=== PATIENT | male | born 1965 | race Caucasian/White ===

== ENCOUNTER 2018-02-23 20:33 | Observation (INO) | payer OTHER, SELFPAY ==
[~2018-02-23 20:33] MED LIST: ISOVUE-370 76%-LOCM 1 ML ONE
--- NOTE | 2018-02-23 21:42 | CT ---
BRAIN CT WITHOUT IV CONTRAST: HISTORY: A 53-year-old male with a history of injury following a fall approximately 8 feet, through a roof, wi th neck pain. FINDINGS: No focal mass or midline shift. No intraaxial or extraaxial hemorrhage. The sinuses and mastoids ar e clear. IMPRESSION: No acute intracranial process. No mass or bleed. POS: [facility]
--- NOTE | 2018-02-23 22:14 | CT ---
CERVICAL SPINE CT SCAN WITHOUT IV CONTRAST: HISTORY: A 53-year-old male with a history of back pain after a fall of 8 feet, through a roof. FINDINGS: There is a very minimally displaced linear fracture through the C7 spinous process. Prominent disk o steophytosis changes are noted, particularly at C5-C6 and C6-C7, with some associated canal, lateral recess, and foraminal stenosis. IMPRESSION: Minimally displaced linear fracture through the C7 spinous process. Disk osteophytosis with canal, l ateral recess, and foraminal stenosis at C5-C6 and C6-C7. Findings discussed with Dr. Stephens, concerning the spinous process fracture, at 9:40 p.m. CODE CR POS: [facility]
--- NOTE | 2018-02-23 22:16 | CT ---
THORACIC SPINE CT SCAN WITHOUT IV CONTRAST: HISTORY: A 53-year-old male with a history of a fall from 8 feet with back pain, through a roof. FINDINGS: Generalized disk osteophytosis changes are noted. Again noted is a C7 spinous process fracture. The re are mild compression fractures of T5, T6, and T7, without evidence for retropulsion, associated po sterior element involvement, or significant canal or foraminal stenosis. IMPRESSION: Mild compression fractures of T5, T6, and T7, without retropulsion, posterior element involvement, or associated stenosis. Findings were discussed with Dr. Stephens at 9:40 p.m. CODE CR POS: [facility]
[2018-02-23] MEDS ORDERED: HYDROcodone/Acetaminophen 5/325 mg Tablet ONE (22:27)
[2018-02-23 22:40] LABS: #Basophils 0.1 thou/uL (0.0-0.2); #Eosinphils 0.2 thou/uL (0.0-0.7); #Lymphocytes 2.3 thou/uL (1.20-3.40); #Monocytes 0.8 thou/uL (0.11-0.59); #Neutrophils 9.2 thou/uL (1.40-6.50); %Basophils 0.5 % (0.0-1.0); %Eosinophils 1.7 % (0.0-10.0); %Monocytes 6.3 % (0.0-10.0); %Neutrophils 73.6 % (42.0-75.0); Hemoglobin 15.7 g/dL (14.0-18.0); Mean Corpuscular HGB CONC 34.6 g/dL (32.0-36.0); Mean Corpuscular Hemoglobin 30.5 pg (27.0-31.0); Mean Corpuscular Volume 88.4 fl (80.0-94.0); Mean Platelet Volume 6.5 fL (7.4-10.4); Platelet Count 235 thou/uL (130-400); RBC Distribution Width 12.5 % (11.5-14.5); Red Blood Cell (RBC) Count 5.14 mill/uL (4.70-6.10); White Blood Cell (WBC) Count 12.5 thou/uL (4.8-10.8)
[2018-02-23 23:03] LABS: ALT (SGPT) 26 U/L (8-55); AST (SGOT) 21 U/L (5-34); Albumin 4.2 g/dL (3.5-5.0); Alkaline Phosphatase 67 U/L (40-150); Anion Gap 13 mmol/L (10-20); BUN (Urea Nitrogen) 20 mg/dL (8.4-25.7); Bilirubin, Total 0.6 mg/dL (0.2-1.2); Calc. Creatinine Clearance 0 mL/min (70-130); Calcium 9.4 mg/dL (7.8-10.44); Carbon Dioxide 22 mmol/L (22-29); Chloride 106 mmol/L (98-107); Estimated GFR-MDRD 54; Globulin 2.8 g/dL (2.4-3.5); Glucose 104 mg/dL (70-105); Sodium 137 mmol/L (136-145)
--- NOTE | 2018-02-23 23:29 | CT ---
LUMBAR SPINE CT SCAN WITHOUT IV CONTRAST: HISTORY: A 53-year-old male with a history of low back pain following a fall, 8 feet, through a roof. FINDINGS: No evidence for acute fracture or dislocation. L1-L2: Unremarkable. L2-L3: Demonstrates very mild bulging without significant stenosis. L3-L4: Demonstrates some ligament and facet hypertrophic changes and minimal diffuse bulging with mi ld to moderate lateral recess stenosis without significant foraminal stenosis. L4-L5: There is disk bulging with a somewhat more focal left central protrusion, with ligament and f acet hypertrophic changes, with moderate central canal and lateral recess stenosis and moderate bilat eral foraminal stenosis. L5-S1: Unremarkable. IMPRESSION: No acute fracture or dislocation. Some variable severity canal, lateral recess, and foraminal stenos is, most marked at L4-L5. POS: [facility]
--- NOTE | 2018-02-23 23:33 | CT ---
CT ANGIOGRAM NECK INCLUDING 3D RENDERIN02/23/2018 HISTORY: A 53-year-old male with a history of neck swelling after a fall, from 8 feet, through a roof. TECHNIQUE: The exam includes 3D rendering. FINDINGS: The common, internal, and external carotid arteries appear unremarkable, without evidence for associa mansi stenosis. There is some moderate narrowing of the left vertebral artery as it passes through the left C5 foramen secondary to fairly extensive facet arthrosis and marked uncovertebral hypertrophic changes. The remainder of the vertebral arteries and basilar artery appear unremarkable. No evidenc e for a soft tissue mass or evidence for significant hematoma within the neck. The soft tissues of t he neck appear unremarkable. IMPRESSION: Moderate focal extrinsic narrowing of the left vertebral artery as it passes through the C5 foramen s econdary to severe osteophytosis and facet arthrosis. The carotid arteries appear unremarkable. No e vidence for soft tissue mass or neck hematoma. POS: [facility]
[2018-02-24] MEDS ORDERED: Morphine 4 MG/ML VIAL ONE (00:09)
[2018-02-24] MEDS ORDERED: Ketorolac Tromethamine 30 MG/ML VIAL ONE (01:24)
[2018-02-24] MEDS ORDERED: Lorazepam 2 MG/ML VIAL ONE (01:24)
[2018-02-24] MEDS ORDERED: Ondansetron ODT 4 MG TAB PO PRN (02:14)
[2018-02-24] MEDS ORDERED: Ondansetron HCl/PF 4 MG/2 ML Vial IVP PRN (02:14)
[2018-02-24] MEDS ORDERED: Dextrose 5% in Water 1,000 ML IV PRN (02:14)
[2018-02-24] MEDS ORDERED: Dextrose 50% Abboject 50 ML SYRINGE SLOW IVP PRN (02:14)
[2018-02-24] MEDS ORDERED: Rib Fracture Protocol PO SCH (02:15)
[2018-02-24] MEDS ORDERED: Sodium Chloride 0.9% 1,000 ML IV SCH (02:30)
[2018-02-24] MEDS ORDERED: Cyclobenzaprine 10 MG TAB PO PRN (02:30)
[2018-02-24 04:28] VITALS: BMI 31.9
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
[2018-02-24 05:58] LABS: Anion Gap 10 mmol/L (10-20); BUN (Urea Nitrogen) 23 mg/dL (8.4-25.7); Calc. Creatinine Clearance 81 mL/min (70-130); Carbon Dioxide 26 mmol/L (22-29); Chloride 106 mmol/L (98-107); Estimated GFR-MDRD 48; Glucose 150 mg/dL (70-105); Potassium 3.6 mmol/L (3.5-5.1); Sodium 138 mmol/L (136-145)
[2018-02-24] MEDS ORDERED: Ibuprofen 800 MG TAB PO SCH ×2 (06:00→08:00)
[2018-02-24] MEDS: Acetaminophen 500 MG TAB PO SCH ×2 (06:13→11:57)
[2018-02-24] MEDS: traMADol HCl 50 MG TAB PO SCH ×2 (06:13→11:57)
--- NOTE | 2018-02-24 06:57 | CON ---
DATE OF CONSULTATION: 02/24/2018 ATTENDING PHYSICIAN: Dr. Eddie Lopez HISTORY OF PRESENT ILLNESS: The patient is a 53-year-old male who is otherwise healthy, who presented to the emergency department after falling approximately 8 feet from his roof. Following the event the patient was ambulatory at the scene, but began developing some upper back and neck pain and some swelling in his neck and then was therefore brought to the emergency department by EMS for further evaluation. CT was notable for a C7 spinous process fracture as well as T5, 6 and 7 compression fractures. CTA of the cervical spine was negative for any vascular injury. Neurosurgery Service was contacted for evaluation of his acute spinous fractures and a TELEVISION CAMERAMAN brace was recommended. The patient continued to have intractable pain in the emergency department despite several medication and was therefore admitted to the Trauma Service for further pain control. I am seeing the patient at the bedside. He has a GCS of 15. He is in no acute distress, appears comfortable. He has free active range of motion of all extremities. No focal motor weakness is appreciated. He is currently wearing a TELEVISION CAMERAMAN brace provided by [employer]. PAST MEDICAL HISTORY: He reports he is otherwise healthy, denies any medical problems. PAST SURGICAL HISTORY: Hernia repair, plastic surgery to the left forehead. ALLERGIES: The patient has no known drug allergies. SOCIAL HISTORY: He smokes 1 pack per day. He does not drink or use any drugs. FAMILY HISTORY: Noncontributory. REVIEW OF SYSTEMS: Per HPI. PHYSICAL EXAMINATION: VITAL SIGNS: Temperature is 98.1, heart rate is 67, respiration is 16. Patient is 99% on room air, blood pressure is 115/84. CONSTITUTIONAL: GCS 15. Comfortable, no acute distress. HEAD: Normocephalic, atraumatic. EYES: PERRLA. Extraocular movements are intact. NECK: Supple, TELEVISION CAMERAMAN brace in place. PULMONARY: Symmetric chest expansion. Nontender to palpation. No evidence of dyspnea. CARDIOVASCULAR: Regular rate and rhythm. BACK: He is tender over the upper thoracic and mid thoracic region. Pain with any movement. MUSCULOSKELETAL: Free active range of motion of all extremities. No focal motor weakness. No sensation changes. NEUROLOGIC: GCS 15. Alert and oriented x4. No focal neurologic deficits are appreciated. ASSESSMENT AND PLAN: The patient appears to have acute C7 spinous process fracture and T5, 6 and 7 marked compression fractures without retropulsion. He has been fitted with a TELEVISION CAMERAMAN brace which he should wear for all out of bed activities. The brace could be removed briefly when the patient is lying flat in bed or to shower. At this point, I do not anticipate any acute neurosurgical intervention. We will plan to follow up with the patient is approximately 4 weeks with repeat set of x-rays. Please reach out to Neurosurgery Service for any additional questions or concerns. CHRISTIAN
[2018-02-24 07:35] VITALS: TEMP 97.9
[2018-02-24] MEDS ORDERED: Gabapentin 300 MG CAP PO SCH (09:00)
[2018-02-24] MEDS ORDERED: Famotidine 20 MG TAB PO SCH (09:00)
[2018-02-24 11:42] VITALS: BP 122/66
[2018-02-24] MEDS ORDERED: Enoxaparin Sodium 40 MG/0.4 ML SYRINGE SC SCH (21:00)
--- NOTE | 2018-02-25 03:12 | DIS ---
DATE OF ADMISSION: 02/24/2018 DATE OF DISCHARGE: 02/24/2018 ADMITTING PHYSICIAN: Anup Dobbs MD DISCHARGING PHYSICIAN: Santos Sampson DO CONSULTING PHYSICIAN: Eddie Lopez MD, Neurosurgeon. REASON FOR HOSPITALIZATION: An 8 feet fall from carport with T-spine fractures. DISCHARGE DIAGNOSES: 1. Status post fall from carport, 8 feet. 2. C7 spinous process fracture. 3. T5, T6, and T7 compression fracture. 4. Acute traumatic pain. PROCEDURES: None. DISCHARGE CONDITION: Good. DISPOSITION: Home. DISCHARGE MEDICATIONS: 1. Acetaminophen 1000 mg every 6 hours. 2. Flexeril 10 mg oral 3 times daily. 3. Gabapentin 300 mg oral 3 times daily. 4. Ibuprofen 800 mg oral 3 times daily. 5. Tramadol 100 mg oral q.6 hours. ACTIVITY ORDERS: Patient may be out of bed with TLSO brace only. THERAPY: None. DIETARY INSTRUCTIONS: Regular. PLANS FOR FOLLOWUP: Dr. Lopez 4 weeks with repeat x-rays. BRIEF HISTORY OF HOSPITALIZATION: Mr. Vaz is a 53-year-old male who was working on his roof when he fell off and began to have pain on the right side of his neck. He was able to ambulate, but summoned EMS and was transported to [facility]. He was found to have multiple T-spine compression fractures and a C-spine spinous process fracture. He was admitted to the hospital by Trauma Services for pain control and a consult was made to Neurosurgery. Neurosurgery did not recommend surgical intervention and he was placed in TLSO brace. The following morning, pain was well controlled on oral analgesia. He was seen by physical therapy who recommended he be discharged from their services. He was given all discharge instructions, followup information, and strict return precautions. He was discharged home with family. He is to follow up with Dr. Lopez in 4 weeks. Patient was reviewed with Dr. Sampson who agrees with plan for discharge. [facility] HOSPITALGeoffrey
== END 2018-02-24 13:45 | disposition home or self-care (01) ==
LOC: ERS 20:33 → SURG A 02-24 01:30
PROVIDERS: ADMIT Specialist; ATTEND Specialist
DX: W13.2XXA Fall from, out of or through roof, initial encounter; G89.11 Acute pain due to trauma; S22.069A Unspecified fracture of T7-T8 vertebra, initial encounter for closed fracture; S22.059A Unspecified fracture of T5-T6 vertebra, initial encounter for closed fracture; S12.600A Unspecified displaced fracture of seventh cervical vertebra, initial encounter for closed fracture; F17.210 Nicotine dependence, cigarettes, uncomplicated
CPT/HCPCS: 36415; 70450; 70498; 72125; 72128; 72131; 80048; 80053; 85025; 94640; 96361; 96374; 96375; 99406; G0378; G0390; G8978-GP-CJ; G8979-GP-CJ; G8980-GP-CJ; J1885; J2060; J2270; J7620; L0200

== ENCOUNTER 2018-03-26 13:48 | Outpatient (CLI) | payer SELFPAY ==
--- NOTE | 2018-03-26 14:32 | RAD ---
THORACIC SPINE 3 VIEWS: Date: 03/26/18 HISTORY: Pain. Three vertebral body fractures. Patient fell a month ago. COMPARISON: None. CORRELATION: CT thoracic spine dated 02/23/18. FINDINGS: There is loss of vertebral body height at T5, T6, and T7, corresponding to areas of previous injury. There is also suggestion of loss of vertebral body height at T8 and T9. IMPRESSION: Mid thoracic spine fractures. There is mild loss of vertebral body height, greatest at the T7 level. POS: [facility]
--- NOTE | 2018-03-26 14:38 | RAD ---
CERVICAL SPINE 3 VIEWS: Date: 03/26/18 HISTORY: Neck pain. Fracture. FINDINGS: Vertebral body heights are maintained. There is disc space narrowing and minimal degenerative retroli sthesis at the C5-6 level. Osteophytosis throughout the vertebral bodies and facets. C7 spinous proce ss fracture is faintly seen on the lateral view, with significant displacement suspected. IMPRESSION: 1. Suspected worsening of displacement of the C7 spinous process fracture. 2. Degenerative changes cervical spine. POS: [facility]
== END 2018-03-26 13:49 | disposition home or self-care (01) ==
LOC: TBSIIMAG 13:48
PROVIDERS: ATTEND Neurological Surgery
DX: M54.2 Cervicalgia (principal); M54.6 Pain in thoracic spine; M47.892 Other spondylosis, cervical region; S22.009D Unspecified fracture of unspecified thoracic vertebra, subsequent encounter for fracture with routine healing
CPT/HCPCS: 72040; 72072

== ENCOUNTER 2018-04-13 11:55 | Emergency (ER) | payer SELFPAY ==
--- NOTE | 2018-04-13 12:32 | RAD ---
RIGHT FINGER THREE VIEWS: History: Smashed finger. Comparison: None. FINDINGS: There appears to be a small osseous avulsion off the lateral margin of the middle finger distal phala nx tuft. Overlying soft tissues appear to have a degloving injury. Proximal phalanx are intact. IMPRESSION: Soft tissue and lateral margin of the osseous tuft of the distal phalanx of the middle finger deglovi ng injury. POS: [facility]
[2018-04-13] MEDS ORDERED: HYDROcodone/Acetaminophen 10/325 mg Tablet ONE (13:37)
[2018-04-13] MEDS ORDERED: Bupivacaine 0.5% 10 ML VIAL ONE (13:37)
[2018-04-13] MEDS ORDERED: Lidocaine 1% (PF) 30 ML VIAL ONE (13:37)
[2018-04-13] MEDS ORDERED: Adacel (T-DAP) 0.5 ML VIAL ONE (13:47)
[2018-04-13] MEDS ORDERED: CEFAZOLIN 1 GM VIAL ONE (13:48)
[2018-04-13] MEDS ORDERED: Bacitracin Zinc 1 Packet ONE ×2 (15:34→15:35)
== END 2018-04-13 16:00 | disposition home or self-care (01) ==
LOC: ERS 11:55
DX: S68.622A Partial traumatic transphalangeal amputation of right middle finger, initial encounter (principal); F17.210 Nicotine dependence, cigarettes, uncomplicated; W23.0XXA Caught, crushed, jammed, or pinched between moving objects, initial encounter
CPT/HCPCS: 90471; 90715; 96372; J0690; J2001; J3490

== ENCOUNTER 2018-04-17 10:14 | Day surgery (SDC) | payer SELFPAY ==
[2018-04-16 13:24] VITALS: BMI 31.4
[2018-04-17] MEDS ORDERED: CEFAZOLIN/Water 2 GM/20 ML SYRINGE ONE (11:48)
[2018-04-17] MEDS ORDERED: Fentanyl 100 MCG/2 ML VIAL ONE ×2 (13:12→15:25)
[2018-04-17 13:13] LABS: #Basophils 0.1 thou/uL (0.0-0.2); #Eosinphils 0.3 thou/uL (0.0-0.7); #Lymphocytes 2.7 thou/uL (1.20-3.40); #Monocytes 0.7 thou/uL (0.11-0.59); %Eosinophils 3.3 % (0.0-10.0); %Lymphocytes 31.3 % (21.0-51.0); %Monocytes 7.4 % (0.0-10.0); Hemoglobin 15.8 g/dL (14.0-18.0); Mean Corpuscular HGB CONC 34.1 g/dL (32.0-36.0); Mean Corpuscular Hemoglobin 30.1 pg (27.0-31.0); Mean Corpuscular Volume 88.3 fl (80.0-94.0); Mean Platelet Volume 6.8 fL (7.4-10.4); Platelet Count 239 thou/uL (130-400); RBC Distribution Width 12.4 % (11.5-14.5); Red Blood Cell (RBC) Count 5.25 mill/uL (4.70-6.10); White Blood Cell (WBC) Count 8.7 thou/uL (4.8-10.8)
[2018-04-17] MEDS ORDERED: Ondansetron HCl/PF 4 MG/2 ML Vial ONE (13:38)
[2018-04-17] MEDS ORDERED: PROPOFOL 200 MG/20 ML VIAL ONE (13:38)
[2018-04-17] MEDS ORDERED: PHENYLEPHRINE-NS 100 MCG/ML 10 ML SYRINGE ONE (13:38)
[2018-04-17] MEDS ORDERED: Lidocaine 1% PF 5 ML VIAL ONE (13:38)
[2018-04-17] MEDS ORDERED: Sodium Chloride 0.9% 10 ML ONE (15:19)
[2018-04-17] MEDS ORDERED: Bacitracin Zinc Ointment 30 gm TUBE ONE (15:19)
[2018-04-17] MEDS ORDERED: Midazolam HCl 2 mg/2 ml Vial ONE ×2 (15:19→15:25)
[2018-04-17] MEDS ORDERED: Thrombin 5000 UNITS/5 ML VIAL ONE (15:19)
[2018-04-17] MEDS ORDERED: Bupivacaine PF 0.5% 30 ML VIAL ONE (16:00)
[2018-04-17] MEDS ORDERED: Ketorolac Tromethamine 30 MG/ML VIAL ONE (17:13)
--- NOTE | 2018-04-18 00:35 | OP ---
DATE OF SURGERY: 04/17/2018 PREOPERATIVE DIAGNOSES: Right long finger open wound with nailbed injury to bone exposure, 2 mm x 3 mm area, 3 x 1 cm full-thickness skin loss. POSTOPERATIVE DIAGNOSES: Right long finger open wound with nailbed injury to bone exposure, 2 mm x 3 mm area, 3 x 1 cm full-thickness skin loss. PROCEDURES PERFORMED: 1. Debridement of bone. 2. Debridement of wound. 3. Full thickness skin graft harvested from the antecubital fossa, apply as a defatted full-thicknes s skin graft. TOURNIQUET TIME: None. INJECTION: 30 mL of 0.5% Marcaine, 15 mL of digit and 15 mL at the donor site. BLOOD LOSS: Less than 15 mL. INDICATION: Open wound with exposed bone and full thickness skin loss just above the left long finge r where he still had over two-thirds of his nail bed and digit intact. DESCRIPTION OF PROCEDURE: After successful general endotracheal anesthesia, the limb was prepped and draped. The anesthesia was given as above along with augmented Marcaine as described above. The pa daquan had had the wound irrigated with 1 liter of normal saline and bulb syringe pressure. We then d ebrided the soft tissue, the bone from the soft tissue envelope, used a rongeur to debride the bone back 2.5 mm deep and 3 mm wide until we could then use a Monocryl to pull soft tissue and fa t over the bone. At this point, we measured an approximately 3 x 1.5 cm soft tissue defect, but some of this small amount of dermis, so we then used a 3 x 1 cm skin graft harvested from the antecubital fossa as a full thickness graft. We defatted the graft, placed it appropriately over the area, used 4 bolster sutures and then a circumferential running 5-0 chromic to secure the graft in all edges. We closed after obtaining hemostasis, closed the donor defect with a running 3-0 Monocryl and for the deep dermis and epidermis with fibrin glue. Bulky dressing was applied to both sites and the patien t left the operating room without evidence of anesthetic or operative complication.
== END 2018-04-17 18:51 | disposition home or self-care (01) ==
LOC: SDC 10:14
PROVIDERS: ATTEND Orthopaedic Surgery Hand Surgery
PROC: 0HRFX73 Replacement of Right Hand Skin with Autologous Tissue Substitute, Full Thickness, External Approach (ICD-10-PCS; principal; 2018-04-17)
PROC: 0PDT0ZZ Extraction of Right Finger Phalanx, Open Approach (ICD-10-PCS; principal; 2018-04-17)
DX: S61.302A Unspecified open wound of right middle finger with damage to nail, initial encounter (principal)
CPT/HCPCS: 85025; 96372; A4216; J1885; J2001; J2250; J2405; J2704; J3010; J3490; S0020

== ENCOUNTER 2018-04-22 15:08 | Outpatient (CLI) | payer OTHER ==
--- NOTE | 2018-04-22 16:02 | RAD ---
THORACIC SPINE THREE VIEWS: History: Follow up fractures. Correlation: CT thoracic spine 02-23-18 which described compression fractures at T5, T6, and T7. Comparison: Plain films thoracic spine 03-26-18. FINDINGS: Anterior wedge compression of the mid thoracic vertebrae again noted with anterior wedging most promi nent at C7 as previously described. There has been no change in height of these vertebrae when compar ed to 03-26-18. No interval change noted. IMPRESSION: Stable findings when compared to 03-26-18. POS: [facility]
--- NOTE | 2018-04-22 16:06 | RAD ---
CERVICAL SPINE 3 VIEWS: HISTORY: Followup fracture. CT scan from 03/26/18 described a fracture of the C7 spinous process. The spinous process fracture of C7 is not adequately evaluated on this study due to overlying soft tissue attenua tion. It is faintly seen on the swimmer's view which is noted as part of the thoracic spine exam. T he cervical vertebrae maintain normal height and alignment. Disk narrowing and degenerative changes noted at C5-6 and C6-7. Posterior spondylitic changes are prominent at C5-6, probably encroaching in to the spinal canal. IMPRESSION: The C7 spinous process fracture is poorly evaluated due to soft tissue attenuation. It is faintly se en on the swimmer's view. POS: [facility]
== END 2018-04-22 15:09 | disposition home or self-care (01) ==
LOC: TBSIIMAG 15:08
PROVIDERS: ATTEND Neurological Surgery
DX: M48.56XA Collapsed vertebra, not elsewhere classified, lumbar region, initial encounter for fracture (principal); S12.600A Unspecified displaced fracture of seventh cervical vertebra, initial encounter for closed fracture
CPT/HCPCS: 72040; 72072